=== PATIENT | male | born 1990 | race Caucasian/White ===

== ENCOUNTER 2023-12-01 13:19 | Emergency (ER) | payer OTHER, BC, SELFPAY ==
--- NOTE | ~2023-12-01 | CT_ITS ---
EXAMINATION: CT cervical spine wo con DATE: 12/01/2023 17:48 INDICATION: fall TECHNIQUE: Computed tomography (CT) of the cervical spine was performed without intravenous contrast. Automated exposure control and iterative reconstruction technique were employed. The dose-length pro duct was 452.54 mGy-cm. COMPARISON: None. FINDINGS: Vertebral Body Alignment: Intact. Craniocervical and atlantoaxial alignment: Mild degenerative change. Alignment intact. Osseous structures/fracture: No evidence of a lytic or blastic process in the visualized spine. Mini mal anterior wedge deformity at C7. Mild anterior wedge deformity at T1, no acute fracture lines evid ent, no adjacent soft tissue swelling. No fracture detected at the remaining levels. Cervical soft tissues: The paraspinal soft tissues planes are maintained. Degenerative changes: No significant degenerative changes. No severe central canal or neural foramina l narrowing. IMPRESSION: Minimal anterior wedge deformity at C7, mild anterior wedge deformity at T1, likely chronic unless ac companied by acute pain or lower cervical tenderness. Otherwise, no acute fracture or traumatic malalignment in the cervical spine. Reviewed, dictated and finalized at location K. [employer] COMPENSATION HEARINGS OFFICER IMPRESSION: Minimal anterior wedge deformity at C7, mild anterior wedge deformity at T1, li lee chronic unless accompanied by acute pain or lower cervical tenderness. Otherwise, no acute fracture or traumatic malalignment in the cervical spine.
--- NOTE | ~2023-12-01 | XR_ITS ---
EXAM: XR wrist LT min 3V, XR hand LT min 3V DATE: 12/01/2023 17:54 HISTORY: fall, pain to ulnar styloid . COMPARISON: X-ray left forearm, same date. FINDINGS: Normal mineralization. No fracture or dislocation. No lytic or blastic lesion. Mild scatte red degenerative change. No erosion or periosteal change. Soft tissues within normal limits. IMPRESSION: No acute osseous finding in the left hand or left wrist. Reviewed, dictated and finalized at location K. DENTIAL BUILDING INSPECTOR IMPRESSION: No acute osseous finding in the left hand or left wrist.
--- NOTE | ~2023-12-01 | CT_ITS ---
EXAMINATION: CT brain wo con DATE: 12/01/2023 17:45 INDICATION: fall, hit head . TECHNIQUE: Computed tomography (CT) of the head was performed without intravenous contrast. The mA wa s adjusted according to patient size. Iterative reconstruction technique was employed. The dose-lengt h product was 605.33 mGy-cm. COMPARISON: None. FINDINGS: No acute intracranial hemorrhage or extra-axial fluid collection. No hydrocephalus, mass, or herniation. No acute ischemic infarct. Unremarkable dural venous sinus attenuation. No acute osseous abnormality. Retention cysts/polyps in the sphenoid sinuses, mild mucosal thickening in the right anterior ethmoid air cells, the remaining aerated spaces are clear. IMPRESSION: No acute intracranial process. Reviewed, dictated and finalized at location K. ERTY DAMAGE CLAIMS ADJUSTOR
--- NOTE | ~2023-12-01 | XR_ITS ---
EXAMINATION: XR forearm LT 2V DATE: 12/01/2023 13:54 INDICATION: Left forearm injury and pain. TECHNIQUE: 2 views of left forearm were obtained. COMPARISON: None. FINDINGS: Bone alignment is normal. No fracture. Joint spaces are normal. No elbow joint effusion. IMPRESSION: 1. No fracture. Reviewed, dictated and finalized at location A. BREEDER IMPRESSION: 1. No fracture.
[2023-12-01 13:21] VITALS: BP 124/86; PULSE 82; RESP 16; TEMP 36.4; O2SAT 97
--- NOTE | 2023-12-01 14:44 | PC.NURSE ---
pt wheeled outside by family member to smoke
--- NOTE | 2023-12-01 17:45 | ED.FALL ---
HPI - Fall General Chief Complaint: Fall Stated Complaint: fall/arm injury Time Seen by Provider: 12/01/23 17:07 History of Present Illness HPI Narrative: 33-year-old male presents to the emergency department for evaluation after a mechanical fall that occurred prior to arrival. 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 States he hit his head but did not lose consciousness. He states he landed on his back and had lower back pain which has since resolved. He denies neck pain. He is complaining of left forearm, wrist and hand pain and is reporting difficulty moving his 4th and 5th digits. He is unsure how he landed on his left extremity. He denies other injuries acquired. Denies saddle anesthesia, loss of bowel or bladder control or retention, lower extremity weakness, vision changes, focal numbness or weakness. Related Data Allergies Allergy/AdvReac Type Severity Reaction Status Date / Time No Known Allergies Allergy Verified 12/01/23 13:25 Review of Systems Review of Systems: CONSTITUTIONAL: Denies fever, chills, or sweats. EYES: Denies visual changes, redness, or discharge. ENT: Denies rhinorrhea, congestion, sore throat, or otalgia. CARDIOVASCULAR: Denies chest pain, palpitations, or edema. RESPIRATORY: Denies cough or dyspnea. GASTROINTESTINAL: Denies abdominal pain, nausea, vomiting, or diarrhea. GENITOURINARY: Denies dysuria or hematuria. SKIN: Denies rash or itching. MUSCULOSKELETAL: See HPI NEUROLOGIC: Denies headache, numbness, or weakness. PSYCHIATRIC: Denies anxiety or depression. Exam Narrative: GENERAL: Well-appearing, well-nourished, and in no acute distress. HEAD: Normocephalic, atraumatic. EYES: PERRLA and EOMI. ENT: Nares clear, no rhinorrhea or epistaxis. Mucous membranes moist. NECK: C-collar in place. Mild tenderness over the distal cervical spine without step-offs or deformities. BACK: no midline thoracolumbar spinous tenderness, step-offs or deformities. CHEST: Clear to auscultation. No respiratory distress. HEART: Regular rate and rhythm. No murmur heard. Normal peripheral pulses. ABDOMEN: Soft, nontender, nondistended, normal active bowel sounds. EXTREMITIES: Tenderness along the mid to distal Left ulna, especially over the ulnar styloid with overlying edema to the wrist. No snuffbo tenderness. Tenderness to the 4th and 5th metacarpals. full range of motion of all digits. Full flexion of wrist with mildly limited range of extension. Cap refill less than 2 throughout. Sensation intact throughout all digits. Compartments soft. No tenderness to remainder of upper extremity. Radial pulse 2 +. SKIN: Warm, dry, no rash. NEURO: No focal deficits. Alert and oriented x3. Cranial nerves 2-12 intact. Strength 5/5 in BUE and BLE. Sensation intact throughout. Course Vital Signs Vital signs: Vital Signs Temperature 97.6 F 12/01/23 13:21 Pulse Rate 82 12/01/23 13:21 Respiratory Rate 16 12/01/23 13:21 Blood Pressure 124/86 12/01/23 13:21 Pulse Oximetry 97 12/01/23 13:21 Oxygen Delivery Room Air 12/01/23 13:21 Temperature 97.6 F 12/01/23 13:21 Pulse Rate 82 12/01/23 13:21 Respiratory Rate 16 12/01/23 13:21 Blood Pressure 124/86 12/01/23 13:21 Pulse Oximetry 97 12/01/23 13:21 Oxygen Delivery Room Air 12/01/23 13:21 MDM - Fall MDM Narrative Medical decision making narrative: 33-year-old male reports for evaluation after mechanical fall that occurred prior to arrival. See HPI for further history. Vitals are stable. exam is significant for the above. No focal deficits. CT brain shows no acute intracranial abnormality. X-ray of the left hand, wrist and forearm are unremarkable. CT cervical spine shows minimal anterior wedge deformity at C7 with mild anterior wedge deformity at T1, likely chronic and was accompanied by acute pain or lower cervical te
[2023-12-01] MEDS: ACETAMINOPHEN 500 MG TABLET 1000 MG PO (18:02)
[2023-12-01] MEDS: IBUPROFEN 600 MG TABLET PO (18:02)
[2023-12-01 18:56] VITALS: PULSE 74; RESP 20; O2SAT 100
== END 2023-12-01 18:57 | disposition home or self-care (01) ==
PROVIDERS: Emergency Provider Physician Assistant
DX: S09.90XA Unspecified injury of head, initial encounter (principal); S63.502A Unspecified sprain of left wrist, initial encounter; W19.XXXA Unspecified fall, initial encounter
CPT/HCPCS: 70450; 72125; 73090; 73110; 73130; 99284; A9270; L0140